=== PATIENT | female | born 1980 | race Caucasian/White ===

== ENCOUNTER 2017-01-04 06:32 | Day surgery (SDC) | payer OTHER ==
[2017-01-03 14:18] VITALS: BMI 25.1
[2017-01-04] MEDS ORDERED: ceFAZolin SODIUM 1 GM VIAL ONE (07:12)
[2017-01-04] MEDS ORDERED: SUCCINYLCHOLINE CHLORIDE 200 MG/10 ML VIAL ONE (07:13)
[2017-01-04] MEDS ORDERED: MIDAZOLAM HCL 2 MG/2 ML SINGLE DOSE VIAL ONE (07:13)
[2017-01-04] MEDS ORDERED: PROPOFOL 20 ML ONE ×2 (07:13)
[2017-01-04] MEDS ORDERED: ROCURONIUM BROMIDE 50 MG/5 ML VIAL ONE (07:15)
[2017-01-04] MEDS ORDERED: LIDOCAINE HCL/PF 2% SDV 5ML VIAL ONE (07:16)
[2017-01-04] MEDS ORDERED: LIDOCAINE HCL 2% JELLY (5 ML/TUBE) ONE (07:16)
[2017-01-04] MEDS ORDERED: VASOPRESSIN 20 UNITS/ML VIAL IV ONE (07:27)
[2017-01-04] MEDS ORDERED: LIDOCAINE HCL 2% JELLY 10 ML CARTRIDGE ONE (07:29)
[2017-01-04] MEDS ORDERED: ceFAZolin SODIUM 1 GM VIAL IVPB ONE (08:08)
[2017-01-04] MEDS ORDERED: BACITRACIN 30 GM TUBE TOPICAL OINTMENT ONE (08:29)
[2017-01-04] MEDS ORDERED: oxyCODONE HCL 5 MG TABLET PO PRN ×2 (08:33→09:09)
[2017-01-04] MEDS ORDERED: ONDANSETRON 4 MG/2 ML VIAL IVPUSH PRN (08:33)
[2017-01-04] MEDS ORDERED: LACTATED RINGERS SOLUTION 1,000 ML IV SCH (08:45)
--- NOTE | 2017-01-04 09:08 | OP ---
Operative Note - Note: Operative Date: 01/04/17 Pre-Operative Diagnosis: stress urinary incontinence Operation: cysto/suburethral sling Findings: KATLYN Post-Operative Diagnosis: Same as Pre-op Surgeon: Dexter Mason Anesthesia: Spinal Estimated Blood Loss (mls): 25 Drains & Tubes with Location: 16fr diaz Operative Report Dictated: Yes
[2017-01-04] MEDS ORDERED: ELECTROLYTE-148 SOLN 1,000 ML IV SCH (09:15)
[2017-01-04 11:54] VITALS: TEMP 98.1
[2017-01-04] MEDS ORDERED: oxyCODONE HCL 5 MG TABLET ONE ×2 (12:34→14:22)
[2017-01-04 16:07] VITALS: BP 100/59; PULSE 71
--- NOTE | 2017-01-04 16:19 | OP ---
DATE OF OPERATION: 01/04/2017 PREOPERATIVE DIAGNOSIS: Stress urinary incontinence. POSTOPERATIVE DIAGNOSIS: Stress urinary incontinence. PROCEDURE: Suburethral sling, Altis, and cystoscopy. SURGEON: Kirsten Lozano MD INDICATION: Patient is a 36-year-old female with stress urinary incontinence, who after given treatment options, would like to undergo sling placement. Understood the risks of bleeding, infection, persistent stress urinary incontinence, de aline urge incontinence, sling erosion, bladder perforation, potential need for additional procedures as a result. DESCRIPTION OF PROCEDURE: After informed consent was obtained, patient was taken to the OR and placed supine on the table. After cardiac monitoring was administered, spinal anesthetic was then given. She was prepped and draped in dorsal lithotomy position. The vagina was prepped and draped in dorsal lithotomy position. At this point, a Biggs was placed under sterile conditions, and a weighted vaginal speculum was inserted into the vagina. A midline suburethral incision was created after injection of Pitressin, and the vaginal epithelium was dissected free from the suburethral tissue until the obturator membrane was palpated digitally. Once an adequate space was created bilaterally, attention was turned to insertion of the sling. First on the patient's right side, the trocar was placed onto the anchor , and the trocar advanced until just past the pubic bone at the obturator foramen. The operating foramen was pierced with a trocar. The trocar twisted to secure the anchor in place. The trocar was then removed, and a tug on the sling confirmed adequate placement of the anchor. At this point, then, the trocar was placed on the patient's opposite side, and again, the trocar advanced to the obturator membrane. Obturator membrane pierced, and the trocar twisted to set the anchor in place, and then, the trocar was then removed. The sling laid flat under the urethra and was gently tensioned. A clamp was used to separate the sling from the undersurface of the urethra to make sure there was not any undue tension. Cystoscopy was then performed, confirmed no evidence of any bladder injury. Bilateral ureteral efflux was seen. After 250 mL of fluid was instilled, the patient was asked to cough. There was no evidence of any leaking, indicating that the mesh was secured in place and not too taut, not too tight, and not too loose. Biggs was then reinserted, and attention was turned to wound closure. There was a small amount of cystocele that was then imbricated using a 2-0 Vicryl. The excess vaginal epithelium over the cystocele was excised. Then, the vaginal epithelium was brought together with a 2-0 Vicryl until the vaginal epithelium was completely reanastomosed. A vaginal packing was then placed. There was no evidence of any active bleeding. Patient was then awoken from anesthesia and transferred to recovery room in stable condition. There were no complications. Estimated blood loss was 25 mL. KIRSTEN LOZANO M.D. [id number] MTDD
--- NOTE | 2017-01-05 12:37 | PATH ---
Surgical Pathology Report Patient Name: VICTOR MANUEL JONES [facility]. Rec. #: [id number] /Age/Gender: 1980 (Age: 36) / F Account: [id number] Location: [facility] SUR[facility] Taken: 01/04/2017 Received: 01/04/2017 Reported: 01/05/2017 Physicians: Dexter Mason M.D. Specimen(s) Received CYSTOCELE WALL Clinical History Urinary stress incontinence Final Diagnosis CYSTOCELE WALL, EXCISION: UNREMARKABLE SQUAMOUS MUCOSA. Electronically Signed Julian Jewell M.D. Gross Description Received in formalin labelled "cystocele wall" is 2 x 2 x 0.5 cm aggregate of portions of barnes mucosa. No focal lesions are identified. A telemarketing sales representative portion is submitted in one cassette. [facility]/01/04/2017 [facility]/01/04/2017
== END 2017-01-04 15:10 | disposition home or self-care (01) ==
LOC: JASU-SURG 06:32 → EDSEX 08:00 → JASU-SURG 15:10
PROVIDERS: ATTEND Urology
PROC: 0TSC4ZZ Reposition Bladder Neck, Percutaneous Endoscopic Approach (ICD-10-PCS; principal; 2017-01-04 07:30)
DX: N39.3 Stress incontinence (female) (male) (principal)
CPT/HCPCS: 84703; 88302-TC; 94760

== ENCOUNTER 2020-07-22 04:12 | Day surgery (SDC) | payer OTHER ==
[2020-07-21 10:40] VITALS: BMI 25.4
[2020-07-22] MEDS ORDERED: VASOPRESSIN 20 UNITS/ML VIAL IV ONE (07:03)
[2020-07-22] MEDS ORDERED: oxyCODONE HCL 5 MG TABLET PO PRN ×3 (07:25→09:19)
[2020-07-22] MEDS ORDERED: ONDANSETRON 4 MG/2 ML VIAL IVPUSH PRN (07:25)
[2020-07-22] MEDS ORDERED: PROPOFOL 20 ML ONE (07:28)
[2020-07-22] MEDS ORDERED: MIDAZOLAM HCL 2 MG/2 ML SINGLE DOSE VIAL ONE (07:28)
[2020-07-22] MEDS ORDERED: SUCCINYLCHOLINE CHLORIDE 200 MG/10 ML SYRINGE ONE (07:28)
[2020-07-22] MEDS ORDERED: ceFAZolin SODIUM 1 GM VIAL ONE (07:40)
[2020-07-22] MEDS ORDERED: DEXAMETHASONE SOD PHOSPHATE 4 MG/1 ML VIAL ONE (07:40)
[2020-07-22] MEDS ORDERED: KETOROLAC TROMETHAMINE 30 MG/1 ML VIAL ONE (07:44)
[2020-07-22] MEDS ORDERED: ceFAZolin SODIUM 1 GM VIAL IVPB ONE (07:45)
[2020-07-22] MEDS ORDERED: DESFLURANE GAS 240 ML BOTTLE IH ONE (07:51)
[2020-07-22] MEDS ORDERED: BACITRACIN 15 GM TUBE TOPICAL OINTMENT ONE (09:08)
--- NOTE | 2020-07-22 09:21 | OP ---
Operative Note - Note: Operative Date: 07/22/20 Pre-Operative Diagnosis: extruded vag sling Operation: sling removal, cysto Post-Operative Diagnosis: Same as Pre-op Anesthesia: General Specimens Removed: sling Operative Report Dictated: Yes
[2020-07-22] MEDS ORDERED: DEXTROSE 5%-0.45% SALINE 1,000 ML IV SCH (09:30)
[2020-07-22] MEDS ORDERED: ACETAMINOPHEN INJECTION 100 ML IVPB ONE (10:39)
[2020-07-22] MEDS ORDERED: ACETAMINOPHEN 1000 MG/100 ML VIAL (NON FORMULARY) IVPB ONE ×2 (11:00→12:07)
--- NOTE | 2020-07-22 11:29 | OP ---
DATE OF OPERATION: 07/22/2020 PREOPERATIVE DIAGNOSIS: Extruded suburethral sling. POSTOPERATIVE DIAGNOSIS: Extruded suburethral sling. PROCEDURE: Removal of suburethral sling and cystoscopy. INDICATION: Patient is a 40-year-old female with an extruded suburethral sling who elected to undergo removal, understood the risks of bleeding, infection, potential injury to adjacent organs and potential recurrence of stress incontinence. PROCEDURE: After informed consent was obtained, patient was taken to the OR, placed supine on the OR table. After cardiac monitoring was administered, general anesthesia was established. She was prepped and draped in dorsal supine position. She was given 1 g of Ancef. Pitressin was injected in the vagina and the suburethral space, and a midline suburethral incision was created. Of note, upon inspection there was sling material visible from the vaginal sulcus on the patient's left side. Midline suburethral incision was created and the vagina was dissected free from the subepithelial tissue. The sling was identified and from the urethra and incised in the midline of the urethra, and then the sling was dissected free all the way back to the vaginal sulcus. On the patient's left side the area was extruded until the entire sling seen on that side was removed. Arm of the sling on the patient's right side was completely intact and I elected to leave that part in in an effort to minimize recurrence of the stress incontinence. At this point with the sling material completely removed and sent off to Pathology, attention was turned to closure of the vaginal epithelium. It was closed at the sulcus and in the midline using 2-0 Vicryl and prior to closure palpation on the patient's left side again revealed no other residual sling material noted. Cystoscopy was performed and there was no evidence of any urethral or bladder injury. Biggs and a vaginal pack were then placed. Patient awoke from anesthesia and transferred to recovery room in stable condition. There were no complications. Estimated blood loss was 25 mL. KIRSTEN LOZANO M.D. [id number]
[2020-07-22] MEDS ORDERED: oxyCODONE HCL 5 MG TABLET ONE (13:11)
[2020-07-22 14:56] VITALS: BP 106/66; PULSE 58; TEMP 97.9
--- NOTE | 2020-07-23 17:11 | PATH ---
Surgical Pathology Report Patient Name: VICTOR MANUEL JONES Med. Rec. #: [id number] /Age/Gender: 1980 (Age: 40) / F Account: [id number] Location: [facility] SUR[facility] Taken: 07/22/2020 Received: 07/22/2020 Reported: 07/23/2020 Physicians: Dexter Mason M.D. Specimen(s) Received REMOVED SUBURETHRAL SLING Clinical History Stress incontinence Final Diagnosis SUBURETHRAL SLING, REMOVAL: PORTIONS OF FIBROMUSCULAR AND FIBROADIPOSE TISSUE SHOWING FOCAL MILD CHRONIC INFLAMMATION. Electronically Signed Christine Woods M.D. Gross Description Received fresh in the container label with "suburethral sling", are 2 portions of soft tissue measuring 4.5 x 1.0 x 0.2 cm, and 2.0 x 1.0 x 0.1 cm. The small portion of the soft tissue show attached portion of blue string-like material measuring 2.5 cm in length and less than 0.1 cm in diameter. The soft is serially sectioned and communications representative sections submitting one cassette. [facility]/07/22/2020 [facility]/07/22/2020
== END 2020-07-22 14:30 | disposition home or self-care (01) ==
LOC: JASU-SURG 04:12
PROVIDERS: ATTEND Urology
PROC: 0TP Urinary System, Removal (ICD-10-PCS; principal; 2020-07-22 07:30)
DX: T83.722A Exposure of implanted urethral mesh into urethra, initial encounter (principal)
CPT/HCPCS: 84703; 88304-TC; 94760; J0131